=== PATIENT | male | born 1970 | race Two or more races ===

== ENCOUNTER 2025-05-03 20:45 | Emergency (ER) | payer MEDICAID, SELFPAY ==
[2025-05-03 20:52] VITALS: BP 143/103; PULSE 86; TEMP 36.9; O2SAT 96; BMI 50.2
--- NOTE | 2025-05-03 20:58 | US_ITS ---
[address] [address] Patient Name: KAILEE LOVE MRN: [id number] date: 1970 Sex: M Assigned Patient Location: ED.MAIN Current Patient Location: ED.MAIN Accession/Order Number: [id number] Exam Date: 05/03/2025 21:08 Report Date: 05/03/2025 22:13 At the request of: VICTORIA HILLS MD Procedure: US scrotum EXAMINATION TYPE: US scrotum grayscale, color Doppler, waveform duplex analysis was performed. DATE OF EXAM ORDERED: 05/03/2025 9:49 PM HISTORY: Testicular swelling COMPARISON: NONE TECHNIQUE: Realtime imaging of the scrotum was performed. [place] scale, color Doppler and spectral Doppler imaging of the testicles was performed. FINDINGS: Testicles: Both testicles demonstrate homogeneous echotexture without intratesticular filling defect. Right measurements: 4.6 x 2.2 x 2.8 cm Left measurements: 4.9 x 2.2 x 3.1 cm Epididymis: The bilateral epididymides demonstrate normal echogenicity without focal lesion. Right measurements: 1.1 cm Left measurements: 1.0 cm Hydrocele: None. There is scrotal wall thickening bilaterally measuring up to 2.3 cm in greatest thickness on the left where the skin is heterogeneous and hyperemic suspicious for cellulitis. Developing abscess is not excluded. Doppler ultrasound of the testicles: Arterial and venous waveforms are seen within both testicles. No sonographic evidence of testicular ischemia. US/US scrotum IMPRESSION: 1. The testicles are normal in size and echogenicity. No intratesticular lesions. 2. No sonographic evidence of testicular ischemia. 3. There is scrotal wall thickening bilaterally measuring up to 2.3 cm in greatest thickness on the left where the skin is heterogeneous and hyperemic suspicious for cellulitis. Developing abscess is not excluded. Impression dictated by: Pietro Rizo M.D. 05/03/2025 10:13 PM Dictation Location: [place] [address] Electronically authenticated by: [id number] Y Date: 05/03/2025 22:13
--- NOTE | 2025-05-03 21:03 | ED_ITS ---
HPI - Male Genitourinary General Chief complaint: Urogenital-Male Stated complaint: GENITALS ARE THE SIZE OF TRISTAN Time Seen by Provider: 05/03/25 20:47 Source: patient Mode of arrival: walk-in Limitations: no limitations History of Present Illness HPI Narrative: This 54-year-old male with a history of hypertension presents for evaluation of bilateral testicular swelling. The patient states that he had just gone to the bathroom and was sitting down when he felt something awkward between his legs. He then felt his testicles and found them to be swollen. He denies any injury to them. He does not have any swelling of his legs. He has no abdominal pain or back pain. He has not noticed any blood in his urine. He is diabetic and on Trulicity. He does not have any swelling in his perineum or groin area. Related Data Home Medications ?Medication ?Instructions ?Recorded ?Confirmed carvedilol 12.5 mg tablet mg 05/03/25 carvedilol 25 mg tablet mg 05/03/25 cholecalciferol (vitamin D3) 50 05/03/25 mcg (2,000 unit) tablet dulaglutide 1.5 mg/0.5 mL mg subcut 05/03/25 subcutaneous pen injector (Trulicity) furosemide 40 mg tablet mg 05/03/25 gabapentin 600 mg tablet mg 05/03/25 lisinopril 40 mg tablet mg 05/03/25 metformin 500 mg tablet,extended mg PO 05/03/25 release 24 hr pantoprazole 40 mg tablet,delayed mg PO 05/03/25 release simvastatin 20 mg tablet mg 05/03/25 trazodone 50 mg tablet mg 05/03/25 Allergies Allergy/AdvReac Type Severity Reaction Status Date / Time No Known Drug Allergies Allergy Verified 05/03/25 20:49 Review of Systems ROS Status of ROS 10 or more systems reviewed and unremark able except as noted in history and below PFSH PFSH Social History Little interest or pleasure in doing things: not at all Feeling down, depressed, or hopeless: not at all Exam Narrative Exam Narrative: Vital signs and Nursing Notes reviewed: Patient is afebrile with a normal pulse, blood pressure is elevated at 143/103, she is not hypoxic with pulse ox of 96% on room air General: Awake, alert, oriented, anxious overweight adult male, no acute distress, lying comfortably on the stretcher HEENT: Normocephalic atraumatic, mucous membranes are moist and pink, eyes are clear, normal conjunctiva, vision is grossly intact Neck: Supple, no meningeal signs, no anterior or posterior cervical lymphadenopathy Chest: Lungs are clear to auscultation with good air entry, there is no wheezing rhonchi or rales appreciated no accessory muscle use, patient is speaking in complete sentences-no chest wall tenderness to palpation CVS: Regular rate and rhythm S1-S2, no murmurs rubs or gallops, pulses are brisk and equal bilaterally ABD: Obese, soft, nondistended, nontender, no rebound guarding or rigidity, bowel sounds are normal, no pulsatile masses appreciated : There is swelling with mild tenderness to both testicles, testicles appear to have a normal lie, there is no cellulitis of the scrotum, there is no redness or swelling in the perineum concerning for necrotizing fasciitis Extremities: Moving all extremities, no lower extremity tenderness or swelling noted, negative Homans' sign, pulses are brisk and equal bilaterally Skin: Normal in appearance without rash,pallor, petechiae or purpura Neuro: No focal deficits Constitutional Vital Signs, click to edit/add: Last Vital Signs Temp 98.4 F 05/03/25 20:52 Pulse 85 05/03/25 22:42 Resp 20 05/03/25 22:42 BP 129/85 05/03/25 22:42 Pulse Ox 94 L 05/03/25 22:42 O2 Del Method Room Air 05/03/25 20:52 Course Vital Signs Vital signs: Vital Signs Temperature 98.4 F 05/03/25 20:52 Pulse Rate 86 05/03/25 20:52 Respiratory Rate 18 05/03/25 20:52 Blood Pressure 143/103 H 05/03/25 20:52 Pulse Oximetry 96 05/03/25 20:52 Oxygen Delivery Method Room Air 05/03/25 20:52 Temperature 98.4 F 05/03/25 20:52 Pulse Rate 85 05/03/25 22:42 Respiratory Rate 20 05/03/25 22:42 Blood Pressure 129/85 05/03/25 22:42 Pulse Oximetry 94 L 05/03/25 22:42 Oxygen Delivery Method Room Air 05/03/25 20:52 MDM - Male Genitourinary MDM Narrative Medical decision making narrative: This 54-year-old male who is diabetic and morbidly obese presents for evaluation of right lateral testicular swelling/scrotal swelling. Symptoms started today. The patient states he went to the bathroom then zipped up his pants and went and sat down and felt something abnormal. He then noticed that he had swelling of his testicles. He is not having any urinary symptoms. He does have moderately swollen testicles with a normal lie. Circumcised penis is normal in appearance. There is no inguinal lymphadenopathy. There was no sign of any infection, cellulitis or other notable abnormality concerning for necrotizing fasciitis in the posterior scrotal area or perineum. Ultrasound of the scrotum was ordered that shows thickening of the skin of the scrotum and otherwise normal appearing testicles. According to radiology this looks like possible cellulitis versus abscess. An IV was then placed and routine labs were ordered. He was given IV Unasyn. He declined the need for anything for pain. Urine is negative for infection or blood. He has a normal white count and hemoglobin. Electrolytes are normal with a normal glucose of 97. CRP and sed rate are normal. Lactic acid is also normal. He will be discharged home with recommendation for scrotal elevation and a prescription for ibuprofen and Augmentin. He was encouraged to follow-up closely with his family physician and return to the emergency department for any swelling redness, breakdown etc. in his perineal area. Patient and are in agreement with this plan. Lab Data Attestation: I reviewed the patient's lab results. Labs: Lab Results 05/03/25 05/03/25 Range/Units 22:05 22:30 WBC 9.9 (4.0-11.0) 10^3/uL RBC 4.26 L (4.70-6.10) 10^6/uL Hgb 14.0 (14.0-18.0) g/dL Hct 38.6 L (42.0-54.0) % MCV 90.6 (80.0-94.0) fL MCH 32.9 (25.9-34.0) pg MCHC 36.3 H (29.9-35.2) g/dL RDW 11.2 (11.0-15.0) % Plt Count 218 (150-450) 10^3/uL MPV 9.6 (9.5-13.5) fL Neut % (Auto) 65.4 (43.0-75.0) % Lymph % (Auto) 22.9 (20.5-60.0) % [place] % (Auto) 9.1 (1.7-12.0) % Eos % (Auto) 1.7 (0.9-7.0) % Baso % (Auto) 0.5 (0.2-2.0) % Neut # (Auto) 6.5 (1.4-6.5) 10^3/uL Lymph # (Auto) 2.3 (1.2-3.8) 10^3/uL [place] # (Auto) 0.9 H (0.3-0.8) 10^3/uL Eos # (Auto) 0.2 (0.0-0.7) 10^3/uL Baso # (Auto) 0.1 (0.0-0.1) 10^3/uL Abs Immat Gran (auto) 0.04 H (0.00-0.03) 10^3/uL Imm/Tot Granulo (auto) 0.4 (0.0-0.5) % ESR 18 (<=20) mm/hr Sodium 131 L (136-145) mmol/L Potassium 4.1 (3.5-5.1) mmol/L Chloride 93 L (98-107) mmol/L Carbon Dioxide 26.8 (21.0-32.0) mmol/L Anion Gap 15.3 BUN 13.0 (7.0-18.0) mg/dL Creatinine 1.19 (0.70-1.30) mg/dL Est GFR ( Amer) >60 (>=60 mL/min/1.73m^2) Est GFR (Non-Af Amer) >60 (>=60 mL/min/1.73m^2) BUN/Creatinine Ratio 10.9 Glucose 97 (74-106) mg/dL Lactate 1.2 (0.4-2.0) mmol/L Calcium 9.2 (8.5-10.1) mg/dL Total Bilirubin 0.7 (0.2-1.0) mg/dL AST 24 (15-37) U/L ALT 56 (16-63) U/L Alkaline Phosphatase 47 (46-116) U/L C-Reactive Protein <0.50 (<=0.50) mg/dL Total Protein 7.7 (6.4-8.2) g/dL Albumin 4.3 (3.4-5.0) g/dL Globulin 3.4 g/dL Albumin/Globulin Ratio 1.3 Urine Color Lt. yellow (YELLOW) Urine Clarity Clear (CLEAR) Urine pH 6.0 (5.0-9.0) Ur Specific [place] 1.010 (1.005-1.025) Urine Protein Negative (NEG/TRACE) mg/dL Urine Glucose (UA) Negative (NEGATIVE) mg/dL Urine Ketones Negative (NEGATIVE) mg/dL Urine Occult Blood Negative (NEGATIVE) Urine Nitrite Negative (NEGATIVE) Urine Bilirubin Negative (NEGATIVE) Urine Urobilinogen 0.2 (0.2-1.0) EU/dL Ur Leukocyte Esterase Negative (NEGATIVE) Urine RBC None seen (0-2) #/HPF Urine WBC None seen (NONE SEEN) #/HPF Ur Squamous Epith Cells Rare (NONE/RARE) #/LPF Urine Crystals None seen (None Seen) #/HPF Urine Bacteria None seen (NONE SEEN) #/HPF Urine Casts None seen (NONE SEEN) #/LPF Urine Mucus None seen (NONE SEEN) Ur Culture Indicated? No Imaging Data US - abdomen: Radiologist's impression: ITS Impressions Scrotum Ultrasound 05/03/25 20:58 IMPRESSION: 1. The testicles are normal in size and echogenicity. No intratesticular lesions. 2. No sonographic evidence of testicular ischemia. 3. There is scrotal wall thickening bilaterally measuring up to 2.3 cm in greatest thickness on the left where the skin is heterogeneous and hyperemic suspicious for cellulitis. Developing abscess is not excluded. Impression dictated by: Pietro Rizo M.D. 05/03/2025 10:13 PM Dictation Location[facility] Electronically authenticated by: [id number] Y Date: 05/03/2025 22:13 Discharge Plan Discharge Chief Complaint: Urogenital-Male Clinical Impression: Scrotal swelling, Cellulitis, scrotum Patient Disposition: Home, Self-Care Time of Disposition Decision: 23:14 Condition: Good Prescriptions / Home Meds: No Action furosemide 40 mg tablet carvedilol 25 mg tablet gabapentin 600 mg tablet carvedilol 12.5 mg tablet trazodone 50 mg tablet pantoprazole 40 mg tablet,delayed release (DR/EC) PO simvastatin 20 mg tablet lisinopril 40 mg tablet metformin 500 mg tablet extended release 24 hr PO cholecalciferol (vitamin D3) 50 mcg (2,000 unit) tablet Trulicity 1.5 mg/0.5 mL pen injector SUBCUT Print Language: Kiswahili Instructions: Cellulitis (ED), Scrotal Pain (ED) Additional Instructions: Elevate scrotum for comfort. Use antibiotics as directed until gone. Use warm compresses and ibuprofen for discomfort. Return to the emergency department for fever, worsening pain redness swelling to the scrotum or perineal area or any concerns. Referrals: Dave Kimbrough MD [Physician] - 1 week Dannie Junior MD [Primary Care Provider, Family Practice] - 1 week
--- OUTSIDE RECORDS SUMMARY | 2025-05-03 21:12 | XMS_ITS | Continuity of Care Document ---
Author Name [facility] Organization [facility] Care Team Providers Care Vest Tailor Name Role Phone [facility] Unavailable Unavailable Allergies, Adverse Reactions, Alerts Combined list of allergies from Department of Defense and Veterans Affairs facilities. It does not include entries that were removed or entered in error. Substance Category Reaction Severity Reaction type Status Date Reported Comments Source No Known Allergies Drug allergy (disorder) active 03/19/2018 [facility] Social History Combined list of available smoking, tobacco, and other social history from Department of Defense and Veterans Affairs facilities. Social History Type Response Date Comment [facility]ly [facility] e This section is an empty social history section. [facility]
--- OUTSIDE RECORDS SUMMARY | 2025-05-03 21:13 | XMS_ITS | Encounter Summary ---
Author Organization [facility] Address [address] [place] [address] Care Team Providers Care Gum Sprayer Name Role Phone Dannie Junior MD Primary Care Provider [phone] Encounter Details Date Type Department Care Team (Late st Contact Info) Description 01/25/2025 Results Follow-Up [facility] [address] [place] [address] Dannie Junior MD [address] [place] [address] Hemoglobin A1c, Hepatitis C antibody Social History Tobacco Use Types Packs/Day Years Used Date Smoking Tobacco: Never Smokeless Tobacco: Never Social Connection and Isolat ion Panel [NHANES] Answer Date Recorded In a typical week, how many times do you talk on the phone with family, friends, or neighbors? More than three times a week 06/02/2024 How often do you get togethe r with friends or relatives? More than three times a week 06/02/2024 How often do you attend chur ch or anabaptism services? 1 to 4 times per year 06/02/2024 Do you belong to any clubs o r organizations such as mosque groups, unions, fraternal or athletic groups, or school groups? No 06/02/2024 How often do you attend meet ings of the clubs or organizations you belong to? More than 4 times per year 06/02/2024 Are you , , di vorced, , never , or living with a partner? Never 06/02/2024 AUDIT-C Answer Date Recorded Q1: How often do you have a drink containing alcohol? 4 or more times a week 06/02/2024 Q2: How many drinks containi ng alcohol do you have on a typical day when you are drinking? 5 or 6 Frequency of Binge Drinking Not on file 05/10 Overall Financial Resource Strain (CARDIA) Answe r Date Recorded How hard is it for you to pa y for the very basics like food, housing, medical care, and heating? Not hard at all 06/02/2024 [facility] Occupat ional Health - Occupational Stress Questionnaire Answer Date Recorded Do you feel stress - tense, restless, nervous, or anxious, or unable to sleep at night because your mind is troubled all the time - these days? To some extent 06/02/2024 Exercise Vital Sign Answer Date Recorde d On average, how many days pe r week do you engage in moderate to strenuous exercise (like a brisk walk)? 1 day 06/02/2024 On average, how many minutes do you engage in exercise at this level? 10 min 06/02/2024 Hunger Vital Sign Answer Date Recorded Within the past 12 months, y ou worried that your food would run out before you got the money to buy more. Never true 06/02/20 24 Within the past 12 months, t he food you bought just didn't last and you didn't have money to get more. Never true 06/02/2024 PRAPARE - Transportation Answer Date Re corded In the past 12 months, has l ack of transportation kept you from medical appointments or from getting medications? No 05/10 In the past 12 months, has l ack of transportation kept you from meetings, work, or from getting things needed for daily living? No 06/02/2024 Housing Stability Vital Sign Answer Polo e Recorded In the last 12 months, was t here a time when you were not able to pay the mortgage or rent on time? No 06/02/2024 Number of Times Moved in the Last Year Not on fi le 06/02/2024 At any time in the past 12 m [facility], were you homeless or living in a alf (including now)? No 06/02/2024 Sex and Gender Information Value Date Recorded Sex Assigned at Male 06/02/2024 9:13 AM EDT Legal Sex Male 7:14 PM EDT Gender Identity Male 06/02/2024 9:13 AM EDT Sexual Orientation Not on file documented as of this encounter Plan of Treatment Upcoming Encounters Date Type Department Care Team (Late st Contact Info) Description 05/30/2025 1:15 PM EDT [facility] [address] [place] [address] Dannie Junior MD [address] [place] [address] documented as of this encounter Visit Diagnoses Not on filedocumented in this encounter Care Teams Gum Sprayer Relationship Specialty Start Date End Date Dannie Junior MD [address] [place] [address] PCP - General Family Medicine 08/19/24 documented as of this encounter
--- OUTSIDE RECORDS SUMMARY | 2025-05-03 21:13 | XMS_ITS | Encounter Summary ---
Author Organization [facility] Address [address] [place] [address] Care Team Providers Care Second Shift Supervisor Name Role Phone Dannie Junior MD Primary Care Provider [phone] Encounter Details Date Type Department Care Team (Late st Contact Info) Description 09/21/2024 Abstract [facility] [address] [place] [address] Dannie Junior MD [address] [place] [id number] Social History Tobacco Use Types Packs/Day Years [...] often do you attend chur ch or sikh services? 1 to 4 times per year 06/02/2024 Do you belong to any clubs o r organizations such as uatsdin groups, unions, fraternal or athletic groups, or [...] and heating? Not hard at all 06/02/2024 [facility] Occupat ional Health - Occupational Stress [...] any time in the past 12 m [facility], were you homeless or living in a half-way (including now)? No 06/02/2024 Sex and Gender [...] 05/30/2025 1:15 PM EDT Office Visit [facility] [address] [place] [address] Dannie Junior MD [address] [place] [address] documented as of this encounter Visit Diagnoses Not on filedocumented in this encounter Care Teams Second Shift Supervisor Relationship Specialty Start Date End Date Dannie Junior MD [address] [place] [id number] PCP - General Family Medicine 08/19/24 documented as of this encounter
--- OUTSIDE RECORDS SUMMARY | 2025-05-03 21:13 | XMS_ITS | Clinical Summary ---
Author Organization [facility] Address [address] [place] [address] Care Team Providers Care Director [employer] Name Role Phone Dannie Juinor MD Primary Care Provider [phone] Allergies No known active allergies Medications OneTouch Ultra test strip 1 each by Other route in the morning. 08/23/20 23 Active Lancets 30G miscIndications:Ty pe 2 diabetes mellitus with hyperglycemia, without long-term current use of insulin (HCC) 1 each Daily 50 each 11 05/27/20 24 Active gabapentin (Neurontin) 600 MG tabletIndications: Type 2 diabetes mellitus with polyneuropathy (HCC) Take 1 tablet (600 mg) by mouth at bedtime 30 tablet 5 11/18/19 25 Active traZODone (Desyrel) 50 MG tabletIndications: Primary insomnia TAKE 1 TABLET(50 MG) BY MOUTH AT BEDTIME 30 tablet 5 11/26/19 25 Active furosemide (Lasix) 40 MG tabletIndications: Edema of both lower legs TAKE 1 TABLET(40 MG) BY MOUTH DAILY NEEDED FOR SWELLING 30 tablet 5 11/26/19 25 Active lisinopril 40 MG tabletIndications: Benign essential hypertension TAKE 1 TABLET BY MOUTH ONCE DAILY 90 tablet 3 12/14/19 25 Active carvedilol (Coreg) 25 MG tabletIndications: Benign essential hypertension TAKE 1 TABLET BY MOUTH IN THE MORNING AND 1 TABLET BEFORE BEDTIME. 30 tablet 6 01/05/20 25 Active celecoxib (CeleBREX) 200 MG capsuleIndications :Primary osteoarthritis of right knee TAKE 1 CAPSULE BY MOUTH TWICE DAILY IF NEEDED 60 capsule 5 01/20/20 25 Active Trulicity 3 MG/0.5ML solution auto-injectorIndic ations:Type 2 diabetes mellitus with hyperglycemia, without long-term current use of insulin (HCC),Primary osteoarthritis of right knee ADMINISTER 3 MG UNDER THE SKIN 1 TIME EVERY WEEK 2 mL 03/14/20 25 Active metFORMIN XR (Glucophage-XR) 500 MG 24 hr tabletIndications: Type 2 diabetes mellitus with hyperglycemia, without long-term current use of insulin (HCC) TAKE 1 TABLET(500 MG) BY MOUTH DAILY 30 tablet 03/21/20 25 Active simvastatin (Zocor) 20 MG tabletIndications: Dyslipidemia TAKE 1 TABLET(20 MG) BY MOUTH AT BEDTIME 30 tablet 03/21/20 25 Active cholecalciferol (Vitamin D-3) 50 MCG (1999 UT) tabletIndications: Vitamin D deficiency TAKE 1 TABLET BY MOUTH DAILY. 90 tablet 3 03/21/20 25 Active pantoprazole (ProtoNix) 40 MG EC tabletIndications: Chronic superficial gastritis without bleeding TAKE 1 TABLET BY MOUTH IN THE MORNING AND 1 TABLET BEFORE BEDTIME 60 tablet 03/28/20 25 Active oxyCODONE-acetamin ophen (Percocet) 10-325 MG tabletIndications: Primary osteoarthritis of right knee Take 1 tablet by mouth 4 (four) times a day as needed for severe pain 120 tablet 04/07/20 25 025 Active oxyCODONE-acetamin ophen (Percocet) 10-325 MG tabletIndications: Primary osteoarthritis of right knee Take 1 tablet by mouth 4 (four) times a day as needed for severe pain 120 tablet 03/09/20 25 025 Discontin ued(Reord er) Active Problems Problem Noted Date Diagnosed Date Chronic bilateral low back pain with bilateral s ciatica 02/24/2025 Assessment & Plan (02/24/2025 1:59 PM EDT): Numbness in legs likely related to degenerative changes in back. Discussed options including imaging, PT and pain management and wants to monitor. Type 2 diabetes mellitus with polyneuropathy 08/2024 Assessment & Plan (02/24/2025 1:59 PM EDT): Symptoms stable and continue neurontin. Assessment & Plan (11/17/2024 1:44 PM EDT): Neuropathy unchanged and increase neurontin. Assessment & Plan (08/19/2024 2:59 PM EST): Developed neuropathy and start neurontin. Screening PSA (prostate specific antigen) 2023 Encounter for long-term current use of medicatio n 06/07/2024 Primary insomnia 06/07/2024 Assessment & Plan (02/24/2025 1:59 PM EDT): Sleeping well with trazodone and continue. Assessment & Plan (11/17/2024 1:43 PM EDT): Sleeping well with trazodone and continue. Assessment & Plan (08/19/2024 2:58 PM EST): Sleeping well with trazodone and continue. Assessment & Plan (06/07/2024 3:19 PM EDT): Not sleeping well and start trazodone. Benign essential hypertension 09/24/2023 Assessment & Plan (02/24/2025 1:58 PM EDT): BP improved and monitor PRN. Discussed DASH diet. Assessment & Plan (11/17/2024 1:43 PM EDT): BP elevated and increase coreg. Monitor PRN. Discussed DASH diet. Assessment & Plan (08/19/2024 2:57 PM EST): BP elevated today but previously controlled and monitor PRN. Assessment & Plan (06/07/2024 3:18 PM EDT): BP controlled and monitor PRN. Assessment & Plan (10/06/2023 3:20 PM EST): BP controlled and monitor PRN. Chronic superficial gastritis without bleeding 0 09/24/2023 Assessment & Plan (02/24/2025 1:59 PM EDT): Symptoms controlled with protonix and continue. Assessment & Plan (11/17/2024 1:43 PM EDT): Symptoms controlled with protonix and continue. Assessment & Plan (06/07/2024 3:18 PM EDT): Symptoms controlled with protonix and continue. Assessment & Plan (10/06/2023 3:21 PM EST): Symptoms controlled with protonix and continue. Dyslipidemia 09/24/2023 Edema of both lower legs 09/24/2023 Assessment & Plan (02/24/2025 1:59 PM EDT): Edema stable and use lasix PRN. Elevate legs PRN. Assessment & Plan (11/17/2024 1:43 PM EDT): Edema stable and use lasix PRN. Elevate legs PRN. Assessment & Plan (08/19/2024 2:57 PM EST): Edema stable and use lasix PRN. Elevate legs PRN. Assessment & Plan (06/07/2024 3:18 PM EDT): Edema stable and use lasix PRN. Elevate legs PRN. Assessment & Plan (10/06/2023 3:22 PM EST): Edema stable and use lasix PRN. Elevate legs PRN. PHOENIX (generalized anxiety disorder) 09/24/2023 Assessment & Plan (10/06/2023 3:22 PM EST): Symptoms stable without medication and monitor. Adult hypothyroidism 09/24/2023 Class 3 severe obesity due t o excess calories with serious comorbidity and body mass index (BMI) of 50.0 to 59.9 in adult 09/24/2023 Assessment & Plan (11/17/2024 1:43 PM EDT): Weight down 6 pounds. Assessment & Plan (08/19/2024 2:58 PM EST): Weight up 8 pounds. Discussed proper diet and regular aerobic exercise. Recommend Weight Watchers and need to limit calories and smaller portions. Need to increase activity and regular aerobic exercise several days a week for 30 minutes at a time. Assessment & Plan (06/07/2024 3:19 PM EDT): Weight up 19 pounds. Discussed proper diet and regular aerobic exercise. Recommend Weight Watchers and need to limit calories and smaller portions. Need to increase activity and regular aerobic exercise several days a week for 30 minutes at a time. SMITA (obstructive sleep apnea) 09/24/2023 Primary osteoarthritis of right knee 09/24/2023 Assessment & Plan (02/24/2025 1:59 PM EDT): Pain stable and continue celebrex. Use percocet PRN. Discussed risks and benefits of opiate therapy. Warned medication is narcotic and risk of addiction. OARRS reviewed. Assessment & Plan (11/17/2024 1:43 PM EDT): Pain stable and continue celebrex. Use percocet PRN. Discussed risks and benefits of opiate therapy. Warned medication is narcotic and risk of addiction. OARRS reviewed. Assessment & Plan (08/19/2024 2:57 PM EST): Pain stable and continue celebrex. Use percocet PRN. Discussed risks and benefits of opiate therapy. Warned medication is narcotic and risk of addiction. OARRS reviewed. Assessment & Plan (06/07/2024 3:19 PM EDT): Pain stable and continue celebrex. Use percocet PRN. Discussed risks and benefits of opiate therapy. Warned medication is narcotic and risk of addiction. OARRS reviewed. Assessment & Plan (10/06/2023 3:22 PM EST): Pain stable and continue celebrex. Use percocet PRN. Discussed risks and benefits of opiate therapy. Warned medication is narcotic and risk of addiction. OARRS reviewed. Seasonal allergic rhinitis due to pollen 024 Assessment & Plan (10/06/2023 3:22 PM EST): Symptoms controlled with medication and continue. Vitamin D deficiency 09/24/2023 Type 2 diabetes mellitus with hyperglycemia 04/2024 Assessment & Plan (02/24/2025 1:59 PM EDT): Reports BS controlled and recent A1C 6.4. Stick to ADA diet and limit carbs. Assessment & Plan (11/17/2024 1:43 PM EDT): Reports BS controlled and due for A1C. Stick to ADA diet and limit carbs. Assessment & Plan (08/19/2024 2:57 PM EST): BS controlled and last A1C 6.6. Stick to ADA diet and limit carbs. Assessment & Plan (06/07/2024 3:19 PM EDT): BS controlled and due for A1C. Stick to ADA diet and limit carbs. Assessment & Plan (10/06/2023 3:22 PM EST): BS controlled and A1C 5.8. Stick to ADA diet and limit carbs. Encounters Date Type Department Care Team Description 04/07/2025 Refill [facility] [address] [place] [address] Dannie Junior MD Primary osteoarthritis of right knee 03/27/2025 Refill [facility] [address] [place] [phone] Dannie Junior MD Chronic superficial gastritis without bleeding 03/18/2025 Refill [facility] [address] [place] [address] Dannie Junior MD Type 2 diabetes mellitus with hyperglycemia, without long-term current use of insulin (HCC); Dyslipidemia ; Vitamin D deficiency 03/14/2025 Refill [facility] [address] [place] [address] Dannie Junior MD Type 2 diabetes mellitus with hyperglycemia, without long-term current use of insulin (HCC); Primary osteoarthritis of right knee 03/09/2025 Refill [facility] [address] [place] [address] Dannie Junior MD Primary osteoarthritis of right knee 02/24/2025 1:30 PM EDT Office Visit [facility] [address] [place] [address] Dannie Junior MD Type 2 diabetes mellitus with hyperglycemia, without long-term current use of insulin (HCC) (Primary Dx); Benign essential hypertension ; Type 2 diabetes mellitus with polyneuropathy (HCC); Chronic bilateral low back pain with bilateral sciatica; Primary osteoarthritis of right knee; Primary insomnia; Edema of both lower legs; Chronic superficial gastritis without bleeding 02/24/2025 Bamboo flowsheet [facility] [address] [place] [address] Dannie Junior MD 02/10/2025 Refill [facility] [address] [place] [address] Dannie Junior MD Primary osteoarthritis of right knee from Last 3 Months Social History Tobacco Use Types Packs/Day Years Used Date Smoking Tobacco: Never Smokeless Tobacco: Never Tobacco Cessation:Counseling Given: Not Answered Social Connection and Isolat ion Panel [NHANES] Answer Date Recorded In a typical week, how many times do you talk on the phone with family, friends, or neighbors? More than three times a week 06/02/2024 How often do you get togethe r with friends or relatives? More than three times a week 06/02/2024 How often do you attend chur ch or uatsdin services? 1 to 4 times per year 06/02/2024 Do you belong to any clubs o r organizations such as latter-day groups, unions, fraternal or athletic groups, or [...] and heating? Not hard at all 06/02/2024 [facility] [place] [facility] Occupat ional Health - Occupational Stress [...] any time in the past 12 m [facility], were you homeless or living in a penitentiary (including now)? No 06/02/2024 Sex and Gender Information Value Date Recorded Sex Assigned at Male 06/02/2024 9:13 AM EDT Legal Sex Male 7:14 PM EDT Gender Identity Male 06/02/2024 9:13 AM EDT Sexual Orientation Not on file Last Filed Vital Signs Vital Sign Reading Time Taken Comments Blood Pressure 152/78 02/24/2025 1:40 PM EDT Pulse 88 02/24/2025 1:40 PM EDT Temperature 36.6 C (97.8 F) 02/24/2025 1:40 PM EDT Respiratory Rate 20 02/24/2025 1:40 PM EDT Oxygen Saturation 89% 02/24/2025 1:40 PM EDT Inhaled Oxygen Concentration - - Weight 162 kg (358 lb) 02/24/2025 1:40 PM EDT Height 177.8 cm (5' 10 ) 02/24/2025 1:40 PM EDT Body Mass Index 51.37 02/24/2025 1:40 PM EDT Plan of Treatment Upcoming Encounters Date Type Department Care Team (Late st Contact Info) Description 05/30/2025 1:15 PM EDT Office Visit [facility] [address] [place] [address] Dannie Junior MD [address] [place] [address] Health Maintenance Due Date Last Done Comments CT Colonography 1971 Colonoscopy 1971 FIT 1971 FOBT 1971 Sigmoidoscopy 1971 Diabetes: Retinopathy Screening 1981 Influenza Vaccine (#1) 2025 Diabetes: Urine Protein Screening 06/10/2025 06/10/2024, 06/10/2024, 06/10/2024, Additional history exists Diabetes: Hemoglobin A1C 07/25/2025 025, 01/22/2025, 06/10/2024, Additional history exists Colorectal Cancer Screening 06/21/2027 FIT-DNA 06/21/2027 06/21/2024 Procedures Procedure Name Priority Date/Time Associated Diagnosis Comments HEPATITIS C ANTIBODY Routine 02/01/2025 3:15 PM EDT HEMOGLOBIN A1C Routine 01/22/2025 11:12 AM EDT LAB COLOGUARD COLON CANCER SCREEN Routine 06/21/2024 9:00 AM EDT Colon cancer screening MICROALBUMIN / CREATININE URINE RATIO Routine 06/10/2024 12:10 PM EDT from Last 3 Months or Most Recently Relevant to Health Maintenance Results * Hepatitis C antibody (02/01/2025 3:15 PM EDT) ANTI HCV W/PCR REFLEX Non-Reacti ve Non-Reacti ve [facility] Comment: If recent infection suspected, recommend repeat testing (>2 months). Nxokwy-un-bbbbsr ratio is <1.0. PERFORMED AT [facility] [address], [place] [address] 02/01/2025 3:1 5 PM EDT 02/01/2025 10:05 PM EDT us Dannie Junior MD LAB BLOOD ORDERABLES Final Resul t [facility] * (ABNORMAL) Hemoglobin A1c (01/22/2025 11:12 AM EDT) HEMOGLOBIN A1C 6.4(H) 4.4 - 5.6 % [facility] Comment: ADA Guidelines Result HgbA1c Normal : less than 5.7 % Prediabetes : 5.7 % to 6.4 % Diabetes : > 6.4 % Use with caution in patients with abnormal hemoglobin variants as the half-life of red blood cells and in vivo glycation rates are affected. AVERAGE GLUCOSE 137 mg/dL [facility] Comment: PERFORMED AT [facility] [address],[place] [address] 01/22/2025 11:1 2 AM EDT 01/22/2025 3:38 PM EDT Dannie Junior MD LAB BLOOD ORDERABLES Final Resul t [facility] * Cologuard?? colon cancer screening (06/21/2024 9:00 AM EDT) NONINV COLON CA DNA+OCC BLD SCRN STL-IMP Negative Negative 06/28/2024 10:00 AM EDT [facility] (CLIA #:[id number]) Comment: NEGATIVE TEST RESULT. A negative Cologuard result indicates a low likelihood that a colorectal cancer (CRC) or advanced adenoma (adenomatous polyps with more advanced pre-malignant features) is present. The chance that a person with a negative Cologuard test has a colorectal cancer is less than 1 in 1500 (negative predictive value >99.9%) or has an advanced adenoma is less than 5.3% (negative predictive value 94.7%). These data are based on a prospective cross-sectional study of 10,000 individuals at average risk for colorectal cancer who were screened with both Cologuard and colonoscopy. (Jessica Perry et al, N Engl J Med 2014;370(14):9615-2446) The normal value (reference range) for this assay is negative. COLOGUARD RE-SCREENING RECOMMENDATION: Periodic colorectal cancer screening is an important part of preventive healthcare for asymptomatic individuals at average risk for colorectal cancer. Following a negative Cologuard result, the [place] [employer] Society and U.S. Multi-Society Task Force screening guidelines recommend a Cologuard re-screening interval of 3 years. References: [place] [employer] Guideline for Colorectal Cancer Screening: https://www.cancer.org/cancer/bsowd-jputpn-mlnxqh/mmhlulecc-kumtfpeaj-ypysnhv/ac s-rec ommendations.html.; Fabien JAIMES, Julio Cesar CR, Gem FRY, Colorectal Cancer Screening: Recommendations for Physicians and Patients from the U.S. Multi-Society Task Force on Colorectal Cancer Screening , Am J Gastroenterology 2017; 112:1868-1175. TEST DESCRIPTION: Composite algorithmic analysis of stool DNA-biomarkers with hemoglobin immunoassay. Quantitative values of individual biomarkers are not reportable and are not associated with individual biomarker result reference ranges. Cologuard is intended for colorectal cancer screening of adults of either sex, 45 years or older, who are at average-risk for colorectal cancer (CRC). Cologuard has been approved for use by the U.S. FDA. The performance of Cologuard was established in a cross sectional study of average-risk adults aged 50-84. Cologuard performance in patients ages 45 to 49 years was estimated by sub-group analysis of near-age groups. Colonoscopies performed for a positive result may find as the most clinically significant lesion: colorectal cancer [4.0%], advanced adenoma (including sessile serrated polyps greater than or equal to 1cm diameter) [20%] or non- advanced adenoma [31%]; or no colorectal neoplasia [45%]. These estimates are derived from a prospective cross-sectional screening study of 10,000 individuals at average risk for colorectal cancer who were screened with both Cologuard and colonoscopy. (Jessica Leblanc al, N Engl J Med 2014;370(14):6061-5950.) Cologuard may produce a false negative or false positive result (no colorectal cancer or precancerous polyp present at colonoscopy follow up). A negative Cologuard test result does not guarantee the absence of CRC or advanced adenoma (pre-cancer). The current Cologuard screening interval is every 3 years. ([place] [employer] and U.S. Multi-Society Task Force). Cologuard performance data in a 10,000 patient pivotal study using colonoscopy as the reference method can be accessed at the following location: www.[employer]/results. Additional description of the Cologuard test process, warnings and precautions can be found at www.[employer].MobileWebsites. Stool specimen (specimen) 06/21/2024 9:00 AM EDT 06/22/2024 1:02 PM EDT Dannie Junior MD LAB MOLECULAR DIAGNOSTICS [facility] Final Result [facility] (CLIA #:[id number]) [place] [address], [place] [phone] * Microalbumin / creatinine urine ratio (06/10/2024 12:10 PM EDT) MICROALBUMIN, URINE 0.8 0.0 - 1.9 mg/dL [facility] URINE CREAT 84.97 mg/dL [facility] ALB/CREAT RATIO 9.4 0.0 - 30.0 mg/g creat [facility] Comment:PERFORMED AT [facility] [address],[place] [address] 06/10/2024 12:1 0 PM EDT 06/10/2024 12:11 PM EDT Dannie Junior MD LAB URINE ORDERABLES Final Resul t [facility] from Last 3 Months or Most Recently Relevant to Health Maintenance Insurance MEDICAID [place] Care Teams Director Museum [employer] Relationship Specialty Start Date End Date Dannie Junior MD [address] [place] [address] PCP - General Family Medicine 08/19/24
--- OUTSIDE RECORDS SUMMARY | 2025-05-03 21:13 | XMS_ITS | Clinical Summary ---
Author Organization [employer] tem Address [id number] [address] [place] [address] Care Team Providers Care Paleologist Name Role Phone Dannie Junior MD Primary Care Provider [phone] Allergies No known active allergies Medications lisinopril (PRINIVIL,ZESTRI L) 10 mg tablet Take 40 mg by mouth daily. Active simvastatin (ZOCOR) 40 mg tablet Take 40 mg by mouth nightly. Active metFORMIN (GLUCOPHAGE) 1000 mg tablet Take 500 mg by mouth daily with breakfast. Active citalopram (CeleXA) 40 mg tablet Take 40 mg by mouth daily. Active carvedilol (COREG) 12.5 mg tablet Take 6.25 mg by mouth daily. Active Encounters Date Type Department Care Team Description 02/01/2025 Travel from Last 3 Months Social History Tobacco Use Types Packs/Day Years Used Date Smoking Tobacco: Never Smokeless Tobacco: Never Alcohol Use Standard Drinks/Week Comments Yes 0 (1 standard drink = 0.6 oz pur e alcohol) BEER EVERY OTHER DAY Childcare Answer Date Recorded Childcare Unknown 02/17/2019 Employment Answer Date Recorded Employment Unknown 02/17/2019 Purpose - Life Answer Date Recorded Purpose and direction in life Unknown Sex and Gender Information Value Date Recorded Sex Assigned at Not on file Legal Sex Male 11:32 AM EDT Gender Identity Not on file Sexual Orientation Not on file Last Filed Vital Signs Vital Sign Reading Time Taken Comments Blood Pressure 142/64 01/30/2021 10:30 PM EDT Pulse 78 01/30/2021 10:40 PM EDT Temperature 36.7 C (98 F) 01/30/2021 6:53 PM EDT Respiratory Rate 15 01/30/2021 10:40 PM EDT Oxygen Saturation 96% 01/30/2021 10:40 PM EDT Inhaled Oxygen Concentration - - Weight 147.4 kg (325 lb) 01/30/2021 6:53 PM EDT Height 177.8 cm (5' 10 ) 01/30/2021 6:53 PM EDT Body Mass Index 46.63 01/30/2021 6:53 PM EDT Plan of Treatment Health Maintenance Due Date Last Done Comments Diabetic Ophthalmology Exam 1971 Depression Screening 1983 Tobacco Screening 1983 Adult BMI Screening 1989 Diabetic Foot Exam 1989 DTaP,Tdap and Td Vaccines (1 - Tdap) 1990 Zoster (Shingles) Vaccine (1 of 2) 2021 Influenza Vaccine 05/09/2025 Statin Use: Diabetic 03/21/2026 03/21/2025 Medical Devices Not on file Procedures Procedure Name Priority Date/Time Associated Diagnosis Comments HEPATITIS C(HCV) ANTIBODY W/REFLEX TO PCR Routine 02/01/2025 3:15 PM EDT Contact with and (suspected) exposure to viral hepatitis from Last 3 Months Results * Hepatitis C(HCV) Ab w/ Reflex to PCR (02/01/2025 3:15 PM EDT) ANTI HCV W/PCR REFLX Non-Reacti ve Non-Reacti ve 02/01/2025 11:40 PM EDT [facility] Comment: If recent infection suspected, recommend repeat testing (>2 months). Mjsrgq-df-[id number] ratio is <1.0. Blood Venous blood / Unknown Venipuncture / Unknown 02/01/2025 3:15 PM EDT 02/01/2025 3:15 PM EDT us Dannie Junior MD LAB BLOOD ORDERABLES Final Resul t [facility] [address] [place] [address], [place] [phone] from Last 3 Months Insurance [facility] MEDICAID Care Teams Paleologist Relationship Specialty Start Date End Date Dannie Junior MD PCP - General 03/03/17
--- NOTE | 2025-05-03 21:58 | PC.NURSE ---
report given to Kathy GREENE, all questions answered.
[2025-05-03 22:10] LABS: Glucose Urine UA NEGATIVE (NEGATIVE)
[2025-05-03 22:19] LABS: Cast Seen? NONE SEEN #/LPF (NONE SEEN); Crystals Seen? None Seen #/HPF (None Seen); Urine Culture Indicated NO
[2025-05-03] MEDS: AMPICILLIN SODIUM/SULBACTAM NA 3 GM in 0.9 % SODIUM CHLORIDE 100 ML IV (22:39)
[2025-05-03 22:40] LABS: Hematocrit 38.6 % (42.0-54.0); Hemoglobin 14.0 g/dL (14.0-18.0); Immature Granulocytes Abs Auto 0.04 10^3/uL (0.00-0.03); Immature Granulocytes Pct Auto 0.4 % (0.0-0.5); Lymphocytes Absolute Auto 2.3 10^3/uL (1.2-3.8); Mean Corpuscular HGB Conc 36.3 g/dL (29.9-35.2); Mean Corpuscular Hemoglobin 32.9 pg (25.9-34.0); Mean Corpuscular Volume 90.6 fL (80.0-94.0); Platelet Count 218 10^3/uL (150-450); Red Blood Count 4.26 10^6/uL (4.70-6.10); White Blood Count 9.9 10^3/uL (4.0-11.0)
[2025-05-03 22:42] VITALS: BP 129/85; PULSE 85; O2SAT 94
[2025-05-03 22:55] LABS: Alanine Aminotransferase 56 U/L (16-63); Albumin Globulin Ratio 1.3; Albumin Level 4.3 g/dL (3.4-5.0); Alkaline Phosphatase 47 U/L (46-116); Anion Gap 15.3; Aspartate Amino Transferase 24 U/L (15-37); Blood Urea Nitrogen 13.0 mg/dL (7.0-18.0); Calcium 9.2 mg/dL (8.5-10.1); Carbon Dioxide 26.8 mmol/L (21.0-32.0); Chloride 93 mmol/L (98-107); Estimated GFR (African America >60 (>=60 mL/min/1.73m^2); Estimated GFR (Non-African Ame >60 (>=60 mL/min/1.73m^2); Globulin 3.4 g/dL; Glucose 97 mg/dL (74-106); Potassium 4.1 mmol/L (3.5-5.1); Sodium 131 mmol/L (136-145); Total Protein 7.7 g/dL (6.4-8.2)
[2025-05-03 22:58] LABS: Lactate/Lactic Acid 1.2 mmol/L (0.4-2.0)
== END 2025-05-03 23:41 | disposition home or self-care (01) ==
PROVIDERS: Emergency Provider Emergency Medicine; PCP Family Medicine
DX: N49.2 Inflammatory disorders of scrotum (principal); N50.89 Other specified disorders of the male genital organs; I10 Essential (primary) hypertension; E11.9 Type 2 diabetes mellitus without complications; Z79.85 Long-term (current) use of injectable non-insulin antidiabetic drugs; Z79.84 Long term (current) use of oral hypoglycemic drugs; E66.01 Morbid (severe) obesity due to excess calories; Z68.43 Body mass index [BMI] 50.0-59.9, adult
CPT/HCPCS: 36415; 76870; 80053; 81001; 83605; 85025; 85652; 86140; 96365; 99285; J0295

== ENCOUNTER 2025-08-02 13:00 | Outpatient (OUT) | payer OTHER, SELFPAY ==
--- OUTSIDE RECORDS SUMMARY | 2025-08-02 13:07 | XMS_ITS | Encounter Summary ---
Author Organization [facility] [facility] tem Address [id number] [place] [address] Care Team Providers Care Comic Book Writer Name Role Phone Dannie Junior MD Primary Care Provider [phone] Encounter Details DateTypeDepartmentCare Team (Latest Contact Info)Rmcitptwkzr01/21/2025Travel Social History Tobacco UseTypesPacks/DayYears UsedDateSmoking Tobacco: NeverSmokeless Tobacco: NeverAlcohol UseStandard Drinks/WeekCommentsYes0 (1 standard drink = 0.6 oz pure alcohol)BEER EVERY OTHER DAYChildcareAnswerDate RecordedChildcareUnknown 02/17/2019EmploymentAnswerDate TuarplbdOtoiafbbbyQavmquu72/12/2019Hunger ScreeningAnswerDate RecordedWithin the past 12 months we worried whether our food would run out before we got money to buy more.Never True05/25/2025Within the past 12 months the food we bought just didn't last and we didn't have money to get more.Never True05/25/2025Purpose - LifeAnswerDate RecordedPurpose and direction in yhcwLrbvfrb98/11/2021ex and Gender InformationValueDate Recorded Sex Assigned at BirthNot on fileLegal OnqEixh6104/13/2015 11:32 AM EDTGender IdentityNot on fileSexual OrientationNot on filedocumented as of this encounter Plan of Treatment Not on file documented as of this encounter Visit Diagnoses Not on filedocumented in this encounter Care Teams Team MemberRelationshipSpecialtyStart DateEnd Date Dannie Junior MD [facility] - General03/03/17documented as of this encounter
--- OUTSIDE RECORDS SUMMARY | 2025-08-02 13:07 | XMS_ITS | Clinical Summary ---
Author Organization [facility] tem Address [id number] [address] [place] [address] Care Team Providers Care Mathematics Faculty Member Name Role Phone Dannie Junior MD Primary Care Provider [phone] Allergies No known active allergies Medications MedicationSigDispense QuantityRefillsLast FilledStart DateEnd DateStatus lisinopril (PRINIVIL,ZESTRIL) 10 mg tablet Take 40 mg by mouth daily. Active simvastatin (ZOCOR) 40 mg tablet Take 40 mg by mouth nightly.Active metFORMIN (GLUCOPHAGE) 1000 mg tablet Take 500 mg by mouth daily with breakfast. Active citalopram (CeleXA) 40 mg tablet Take 40 mg by mouth daily.Active carvedilol (COREG) 12.5 mg tablet Take 6.25 mg by mouth daily. Active ondansetron ODT (ZOFRAN ODT) 4 mg disintegrating tablet Dissolve 1 tablet (4 mg total) on tongue every 8 (eight) hours as needed for nausea for up to 10 doses. 10 tablet 5Active Encounters DateTypeDepartmentCare PyfoGonwtnxblrx69/21/2459Wdognt07/17/2025 12:19 AM EDT - 05/25/2025 2:28 AM EDTEmergency [facility] [address] [place] [id number] Wyatt Ryder DO Accidental fall, initial encounter (Primary Dx); Acute head injury, initial encounter; Laceration of head without foreign body, unspecified part of head, initial encounter; Alcoholic intoxication without complication; Alcohol abuse; Nausea and vomiting, unspecified vomiting type Discharge Disposition: Home05/25/2025Travelfrom Last 3 Months Social History Tobacco UseTypesPacks/DayYears UsedDateSmoking Tobacco: NeverSmokeless Tobacco: NeverAlcohol UseStandard Drinks/WeekCommentsYes0 (1 standard drink = 0.6 oz pure alcohol)BEER EVERY OTHER DAYChildcareAnswerDate RecordedChildcareUnknown 02/17/2019EmploymentAnswerDate LigspwtaWctldjdmcoDdciics89/12/2019Hunger ScreeningAnswerDate RecordedWithin the past 12 months we worried whether our food would run out before we got money to buy more.Never True05/25/2025Within the past 12 months the food we bought just didn't last and we didn't have money to get more.Never True05/25/2025Purpose - LifeAnswerDate RecordedPurpose and direction in tmioZriodcw73/11/2021ex and Gender InformationValueDate Recorded Sex Assigned at BirthNot on fileLegal PbzIpnb9804/13/2015 11:32 AM EDTGender IdentityNot on fileSexual OrientationNot on file Last Filed Vital Signs Vital SignReadingTime TakenCommentsBlood Udkfjgps538/6709 2:28 AM EDT Kpyvw590905/25/2025 2:28 AM LNRSrkkmlwtpic40.3 ??C (97.4 ??F)05/25/2025 12:22 AM EDTRespiratory Qkxo496705/25/2025 2:28 AM EDTOxygen Bhzokdyleo25%05/25/2025 2:28 AM EDTInhaled Oxygen Concentration--Hdkmef733.5 kg (356 lb)05/25/2025 12:22 AM GQHOfnvxl076.8 cm (5' 10 )05/25/2025 12:22 AM EDTBody Mass Index51.0805/25/2025 12:22 AM EDT Plan of Treatment Health MaintenanceDue DateLast DoneCommentsDiabetic Ophthalmology Exam1971 Depression Gvkdcpagv81/05/1983Adult BMI Follow Up Plan1989Diabetic Foot Exam1989DTaP,Tdap and Td Vaccines (1 - Tdap)1990Zoster (Shingles) Vaccine (1 of 2)2021Influenza Mkbarrg0505/09/2025dult BMI Screening Tobacco Tpttzjacw81Statin Use: Diabetic Medical Devices Not on file Procedures Procedure NamePriorityDate/TimeAssociated DiagnosisCommentsMICROALBUMIN / CREATININE URINE RVTTNUwlcvhp08/21/2025 12:45 PM EST Other fpc (current) drug therapy Hyperlipidemia, unspecified Type 2 diabetes mellitus with hyperglycemia (CMS-HCC) Hypothyroidism, unspecified CBC WITH AUTO KQFFVUFBXFTWAmkhkfy49/21/2025 12:45 PM EST Other ocean transportation intermediary (current) drug therapy Hyperlipidemia, unspecified Type 2 diabetes mellitus with hyperglycemia (CMS-HCC) Hypothyroidism, unspecified COMPREHENSIVE METABOLIC ZNOXVPkrrkhz55/21/2025 12:45 PM EST Other ocean transportation intermediary (current) drug therapy Hyperlipidemia, unspecified Type 2 diabetes mellitus with hyperglycemia (CMS-HCC) Hypothyroidism, unspecified LIPID BOPAGGDJyawvwf80/21/2025 12:45 PM EST Other fpc (current) drug therapy Hyperlipidemia, unspecified Type 2 diabetes mellitus with hyperglycemia (CMS-HCC) Hypothyroidism, unspecified PROSTATIC SPECIFIC ANTIGEN VHJSSGPqisztx22/21/2025 12:45 PM EST Other ocean transportation intermediary (current) drug therapy Hyperlipidemia, unspecified Type 2 diabetes mellitus with hyperglycemia (CMS-HCC) Hypothyroidism, unspecified THYROID PROFILE INCLUDES TSH YS3Lerboog44/21/2025 12:45 PM EST Other fpc (current) drug therapy Hyperlipidemia, unspecified Type 2 diabetes mellitus with hyperglycemia (CMS-HCC) Hypothyroidism, unspecified HEMOGLOBIN K0QKycejmc36/21/2025 12:45 PM EST Other fpc (current) drug therapy Hyperlipidemia, unspecified Type 2 diabetes mellitus with hyperglycemia (CMS-HCC) Hypothyroidism, unspecified CT CERVICAL SPINE WO UBJJNDEO14/17/2025 1:[address] BRAIN WO ONMZURGD71/17/2025 1:20 AM EDT PM ED LACERATION QLORTDSehqbrq96/17/2025 12:30 AM EDT from Last 3 Months Results * Thyroid profile includes TSH FT4 (07/29/2025 12:45 PM EST)ComponentValueRef RangeTest MethodAnalysis TimePerformed AtPathologist SignatureFREE T41.000.61 - 1.60 ng/dL07/29/2025 6:30 PM [facility] LABORATORYTSH1.36 0.49 - 4.67 uIU/mL07/29/2025 6:30 PM [facility] Specimen (Source)Anatomical Location / LateralityCollection Method / Volume Collection TimeReceived TimeBloodVenous blood / UnknownVenipuncture / Unknown 07/29/2025 12:45 PM EST07/29/2025 12:45 PM EST Narrative Authorizing ProviderResult TypeResult StatusMarc Vernon GRULLON BLOOD ORDERABLES Final ResultPerforming OrganizationAddressCity/State/ZIP CodePhone Number [facility] [address] [place] [address], * (ABNORMAL) CBC auto differential (07/29/2025 12:45 PM EST)ComponentValueRef RangeTest MethodAnalysis TimePerformed AtPathologist SignatureWBC6.84 - 11 10^9/L109/28/2024 5:58 PM [facility] LABORATORYRBC Count4.05 (L)4.1 - 5.7 10^12/L109/28/2024 5:58 PM [facility] Ajgjaxufdu24.213 - 17 g/dL07/29/2025 5:58 PM [facility] KVXJVFUCSZYqljxffwjr45.2(L)39 - 50 %07/29/2025 5:58 PM [facility] PTJJDZLAQUPVK7540 - 100 fL07/29/2025 5:58 PM [facility] HAFLHWZNUDSSA76.627 - 34 pg07/29/2025 5:58 PM [facility] QQUVOYBZWFPBFU94.432 - 36 g/dL07/29/2025 5:58 PM [facility] QRBZHBJHIHNIZ22.111.5 - 15 %07/29/2025 5:58 PM [facility] LABORATORYPlatelet Jeidl687471 - 450 10^9/L109/28/2024 5:58 PM [facility]ORATORYMPV9.17 - 12 fL07/29/2025 5:58 PM [facility] LAB[facility]ORYNeutrophils %62.1%07/29/2025 5:58 PM [facility]ORYLymphocytes %27.0%07/29/2025 5:58 PM [facility]ORYMonocytes %8.5%07/29/2025 5:58 PM [facility]ORYEosinophils %1.7%07/29/2025 5:58 PM [facility]ORYBasophils %0.7%07/29/2025 5:58 PM [facility] LAB[facility]ATORYNeutrophils Absolute (A)4.21.5 - 6.6 10^9/L 07/29/2025 5:58 PM [facility]ATORYLymphocytes Absolute 1.81.0 - 3.5 10^9/L109/28/2024 5:58 PM [facility] Monocytes Absolute0.60.0 - 0.9 10^9/L109/28/2024 5:58 PM [facility]ORYEosinophils Absolute0.10.0 - 0.4 10^9/L109/28/2024 5:58 PM [facility] LABORATORYBasophils Absolute0.00.0 - 0.2 10^9/L 07/29/2025 5:58 PM [facility] LABORATORYDifferential Type AUTOMATED DHJCHLLTLPZY73/21/2025 5:58 PM [facility] LABORATORYSpecimen (Source)Anatomical Location / LateralityCollection Method / VolumeCollection TimeReceived TimeBloodVenous blood / UnknownVenipuncture / Phdqrxe8007/29/2025 12:45 PM EST07/29/2025 12:45 PM EST Narrative Authorizing ProviderResult TypeResult StatusDannie GRULLON BLOOD ORDERABLES Final ResultPerforming OrganizationAddressCity/State/ZIP CodePhone Number [facility] [address] [place] [address], * Microalbumin - Albumin: Creatinine Urine Ratio (07/29/2025 12:45 PM EST) ComponentValueRef RangeTest MethodAnalysis TimePerformed AtPathologist SignatureURINE CREATININE,RDM40.55mg/dL07/29/2025 6:12 PM [facility] LABORATORYMALB/CREAT RATIO07/29/2025 6:12 PM [facility] LABORATORYComment:Urine Microalbumin / Creatinine ratio not calculated due to non-numeric component.MICROALBUMIN, URINE<0.70.0 - 1.9 mg/dL07/29/2025 6:12 PM [facility] LABORATORYSpecimen (Source)Anatomical Location / LateralityCollection Method / VolumeCollection TimeReceived Time UrineUrine specimen collection, clean catch / UnknownCollection / Unknown 07/29/2025 12:45 PM EST07/29/2025 12:45 PM EST Narrative Authorizing ProviderResult TypeResult StatusDannie KINGSLEY ORDERABLESFinal ResultPerforming OrganizationAddressCity/State/ZIP CodePhone Number [facility] [address] [place] [address], * (ABNORMAL) Prostatic specific antigen screen (07/29/2025 12:45 PM EST) ComponentValueRef RangeTest MethodAnalysis TimePerformed AtPathologist SignaturePROSTATIC SPEC ANT5.30(H)0.00 - 4.00 ng/mL07/29/2025 6:36 PM EST [facility] LABORATORYComment: The method used for this test is [employer] DXI chemiluminescent immunoassay. Values obtained by different assay methods cannot be used interchangeably. Specimen (Source)Anatomical Location / LateralityCollection Method / Volume Collection TimeReceived TimeBloodVenous blood / UnknownVenipuncture / Unknown 07/29/2025 12:45 PM EST07/29/2025 12:45 PM EST Narrative Authorizing ProviderResult TypeResult StatusDannie GRULLON BLOOD ORDERABLES Final ResultPerforming OrganizationAddressCity/State/ZIP CodePhone Number [facility] [address] [place] [address], * (ABNORMAL) Hemoglobin A1c (07/29/2025 12:45 PM EST)ComponentValueRef RangeTest MethodAnalysis TimePerformed AtPathologist SignatureHEMOGLOBIN A1C5.7(H)4.4 - 5.6 %07/29/2025 6:29 PM [facility] LABORATORYComment: ?ADA Guidelines ?Result ?HgbA1c ? Normal : ? less than 5.7 % ? Prediabetes : ?5.7 % ??to 6.4 % Diabetes : > 6.4 % ?Use with caution in patients with abnormal hemoglobin variants as ??the half-life of red blood cells and in vivo glycation rates are ??affected. EST. AVERAGE TOBXHQG001fl/dL07/29/2025 6:29 PM [facility] LABORATORYSpecimen (Source)Anatomical Location / LateralityCollection Method / VolumeCollection TimeReceived TimeBloodVenous blood / UnknownVenipuncture / Xgpktho3407/29/2025 12:45 PM EST07/29/2025 12:45 PM EST Narrative Authorizing ProviderResult TypeResult StatusDannie GRULLON BLOOD ORDERABLES Final ResultPerforming OrganizationAddressCity/State/ZIP CodePhone Number [facility] [address] [place] [address], * Lipid profile (07/29/2025 12:45 PM EST)ComponentValueRef RangeTest Method Analysis TimePerformed AtPathologist UdlxvxvhjIDJXAYMNYJU680497 - 200 mg/dL 07/29/2025 6:20 PM [facility] TCKODHFNRMCAKTXMMBGEEL85007 - 150 mg/dL07/29/2025 6:20 PM [facility] LABORATORYHDL JYGSHGNYKHN76>39 mg/dL07/29/2025 6:20 PM [facility]ORATORYComment: HDL <40 mg/dL - High Risk HDL > or = 40mg/dL- Desirable HDL >60 mg/dL - Negative Risk LDL (CALC)94<130 mg/dL07/29/2025 6:20 PM [facility] Comment: LDL <100 mg/dL - Desirable LDL >160 mg/dL - High Risk CHOLESTEROL:HDL2.91.0 - 5.011/ 6:20 PM [facility] LABORATORYVERY LOW GOUXPWOSBRO692 - 30 mg/dL07/29/2025 6:20 PM [facility] LABORATORYSpecimen (Source)Anatomical Location / Laterality Collection Method / VolumeCollection TimeReceived TimeBloodVenous blood / UnknownVenipuncture / Ivwzpcb6607/29/2025 12:45 PM EST07/29/2025 12:45 PM EST Narrative Authorizing ProviderResult TypeResult StatusMarc Vernon GRULLON BLOOD ORDERABLES Final ResultPerforming OrganizationAddressCity/State/ZIP CodePhone Number [facility] [address] [place] [address], * (ABNORMAL) Comprehensive metabolic panel (07/29/2025 12:45 PM EST)Component ValueRef RangeTest MethodAnalysis TimePerformed AtPathologist SignatureSODIUM 177289 - 146 mmol/L109/28/2024 6:20 PM [facility] POTASSIUM4.63.5 - 5.0 mmol/L109/28/2024 6:20 PM [facility] SYJJDQNLCZHGJFSXSR22(L)98 - 109 mmol/L109/28/2024 6:20 PM [facility] LABORATORYCARBON UCQWXIK48(H)22 - 32 mmol/L109/28/2024 6:20 PM [facility] LABORATORYANION GAP85 - 15 mmol/L109/28/2024 6:20 PM [facility] LABORATORYBLOOD UREA TUFMPEGH155 - 23 mg/dL07/29/2025 6:20 PM [facility] LABORATORYCREATININE1.78(H)0.60 - 1.30 mg/dL07/29/2025 6:20 PM [facility] LABORATORYComment:METHOD TRACEABLE TO IDPA AUINDMBACZZMUCB636(H)65 - 99 mg/dL07/29/2025 6:20 PM [facility] LABORATORYCALCIUM9.68.5 - 10.5 mg/dL07/29/2025 6:20 PM [facility] LABORATORYTOTAL PROTEIN6.76.0 - 8.0 g/dL 07/29/2025 6:20 PM [facility] LABORATORYALBUMIN4.53.2 - 5.3 g/dL07/29/2025 6:20 PM [facility] LABORATORYALKALINE JWARLXAFIJL88(L)39 - 130 U/L109/28/2024 6:20 PM [facility] IWZIZVUDPLVLJ67<=41 U/L109/28/2024 6:20 PM [facility] YBIYVIFKPBIKD58<=40 U/L109/28/2024 6:20 PM [facility] LABORATORYBILIRUBIN,TOTAL0.60.3 - 1.2 mg/dL07/29/2025 6:20 PM [facility]ORYEGFR Non-Race Cnrcklrdu37(L)>=60 ml/min/1.73sq.m 07/29/2025 6:20 PM [facility] LABORATORYComment: Reported eGFR is based on the CKD-EPI 2020 equation that does not use a race coefficient. Specimen (Source)Anatomical Location / LateralityCollection Method / Volume Collection TimeReceived TimeBloodVenous blood / UnknownVenipuncture / Unknown 07/29/2025 12:45 PM EST07/29/2025 12:45 PM EST Narrative Authorizing ProviderResult TypeResult StatusMarc Vernon GRULLON BLOOD ORDERABLES Final ResultPerforming OrganizationAddressCity/State/ZIP CodePhone Number [facility] [address] [place] [address], [place] [phone] * CT cervical spine without contrast (05/25/2025 1:20 AM EDT)Anatomical Region LateralityModalityMSK, Neuro, Spine, C-spine, Spine CoveraN/AComputed TomographySpecimen (Source)Anatomical Location / LateralityCollection Method / VolumeCollection TimeReceived Time05/25/2025 2:12 AM EDT Narrative 05/25/2025 2:[address] CERVICAL SPINE WITHOUT CONTRAST HISTORY: Fall, laceration, pain COMPARISON: 01/15/2015 TECHNIQUE: CT cervical spine was performed utilizing thin section CT imaging without contrast. Coronal and sagittal reformatted images were obtained and reviewed. All CT scans at this facility use dose modulation, iterative reconstruction, and/or weight based dosing when appropriate to reduce radiation dose to as low as reasonably achievable. FINDINGS: There is no fracture or subluxation. ??The vertebral body heights and alignment are normal. ??No prevertebral soft tissue swelling. ??The paravertebral soft tissues are unremarkable. ??The visualizedlungs are unremarkable. IMPRESSION: 1. ??No acute fracture or malalignment in the cervical spine. 2. ??Consider MRI if there is concern for soft tissue or ligamentous injury. Finalized by Dilip Walton MD on 05/25/2025 2:14 AM Procedure Note Dilip Walton MD - 05/25/2025 CT CERVICAL SPINE WITHOUT CONTRAST HISTORY: Fall, laceration, pain COMPARISON: 01/15/2015 TECHNIQUE: CT cervical spine was performed utilizing thin section CTimaging without contrast. Coronal and sagittal reformatted images wereobtained and reviewed. All CT scans at this facility use dose modulation,iterative reconstruction, and/or weight based dosing when appropriate toreduce radiation dose to as low as reasonably achievable. FINDINGS: There is no fracture or subluxation. The vertebral body heights andalignment are normal. No prevertebral soft tissue swelling. Theparavertebral soft tissues are unremarkable. The visualized lungs areunremarkable. IMPRESSION: 1. No acute fracture or malalignment in the cervical spine. 2. Consider MRI if there is concern for soft tissue or ligamentousinjury. Finalized by Dilip Walton MD on 05/25/2025 2:14 AM Authorizing ProviderResult TypeResult StatusDanitommie [facility] ORDERABLESFinal Result * CT brain without contrast (05/25/2025 1:20 AM EDT)Anatomical RegionLaterality ModalityNeuro, Head, Head and Neck, Neuro CoveraN/AComputed TomographySpecimen (Source)Anatomical Location / LateralityCollection Method / VolumeCollection TimeReceived Time05/25/2025 2:11 AM EDT Narrative 05/25/2025 2:[address] HEAD WITHOUT CONTRAST HISTORY: Fall, head laceration COMPARISON: 11/16/2017 TECHNIQUE: Routine noncontrast CT head. ??All CT scans at this facility use dose modulation, iterative reconstruction, and/or weight based dosing when appropriate to reduce radiation dose to as low as reasonably achievable. FINDINGS: There is no acute intracranial hemorrhage, mass, mass-effect, or shift of midline structures. Thereare no abnormal extra-axial fluid collections. Normal eckert matter-white matter differentiation. Thebrain volume and ventricular size are appropriate for the patient's age and there is no evidence of ventricular outflow obstruction. The basal cisterns are patent. No depressed calvarial fractures. The visualized paranasal sinuses and temporal bone structures are clear. Right parietal scalp laceration. IMPRESSION: * ??No acute intracranial abnormality. * ??Right scalp laceration. Finalized by Dilip Walton MD on 05/25/2025 2:12 AM Procedure Note Dilip Walton MD - 05/25/2025 CT HEAD WITHOUT CONTRAST HISTORY: Fall, head laceration COMPARISON: 11/16/2017 TECHNIQUE: Routine noncontrast CT head. All CT scans at this facility usedose modulation, iterative reconstruction, and/or weight based dosing whenappropriate to reduce radiation dose to as low as reasonably achievable. FINDINGS: There is no acute intracranial hemorrhage, mass, mass-effect, or shift ofmidline structures. There are no abnormal extra-axial fluid collections.Normal eckert matter-white matter differentiation. The brain volume andventricular size are appropriate for the patient's age and there is noevidence of ventricular outflow obstruction. The basal cisterns are patent. Nodepressed calvarial fractures. The visualized paranasal sinuses andtemporal bone structures are clear. Right parietal scalp laceration. IMPRESSION: * No acute intracranial abnormality. * Right scalp laceration. Finalized by Dilip Walton MD on 05/25/2025 2:12 AM Authorizing ProviderResult TypeResult StatusDasona Ryder [facility] CT ORDERABLESFinal Result * Laceration Repair (05/25/2025 12:30 AM EDT) Wyatt Patton DO - 05/25/2025 12:30 AM EDT Wyatt Ryder DO 05/25/2025 3:19 AM Laceration Repair Date/Time: 05/25/2025 12:30 AM Performed by: Wyatt Ryder DO Authorized by: Wyatt Ryder DO ?? Consent: ??Consent obtained: ??Verbal ??Consent given by: ??Patient ??Risks, benefits, and alternatives were discussed: yes ?Risks discussed: ??Pain, infection and poor cosmetic result ??Alternatives discussed: ??No treatment [place] protocol: ??Imaging studies available: yes ?Required blood products, implants, devices, and special equipment available: yes ?Site/side marked: yes ?Immediately prior to procedure, a time out was called: yes ?Patient identity confirmed: ??Verbally with patient Anesthesia: ??Anesthesia method: ??Local infiltration ??Local anesthetic: ??Lidocaine 1% WITH epi Laceration details: ??Location: ??Scalp ??Scalp location: ??R parietal ??Length (cm): ??3 ??Depth (mm): ??2 Pre-procedure details: ??Preparation: ??Patient was prepped and draped in usual sterile fashion and imaging obtained to evaluate for foreign bodies Exploration: ??Hemostasis achieved with: ??Epinephrine and direct pressure ??Imaging obtained comment: ??CT ??Imaging outcome: foreign body not noted ?Wound exploration: wound explored through full range of motion and entire depth of wound visualized ?Wound extent: areolar tissue violated ?? Treatment: ??Area cleansed with: ??Soap and water ??Amount of cleaning: ??Standard Skin repair: ??Repair method: ??Erika ??Number of erika: ??8 Approximation: ??Approximation: ??Close Repair type: ??Repair type: ??Simple Post-procedure details: ??Dressing: ??Open (no dressing) ??Procedure completion: ??Tolerated Authorizing ProviderResult TypeResult StatusDanitommie Ryder DO PROCEDURE/MINOR SURGICAL ORDERABLESFinal Result from Last 3 Months Insurance Care Teams Team MemberRelationshipSpecialtyStart DateEnd Date Dannie Junior MD [facility]03/03/17
--- OUTSIDE RECORDS SUMMARY | 2025-08-02 13:07 | XMS_ITS | Clinical Summary ---
Author Organization [facility] Address [address] [place] [address] Care Team Providers Care Needle Control Cheniller Name Role Phone Dannie Junior MD Primary Care Provider [phone] Allergies No known active allergies Medications MedicationSigDispense QuantityRefillsLast FilledStart DateEnd DateStatus OneTouch Ultra test strip 1 each by Other route in the morning.3Active Lancets [facility] Indications:Type 2 diabetes mellitus with hyperglycemia, without long-term current use of insulin (HCC)1 each Daily 50 each 110/4Active gabapentin (Neurontin) 600 MG tablet Indications:Type 2 diabetes mellitus with polyneuropathy (HCC)Take 1 tablet (600 mg) by mouth at bedtime 30 tablet 5035Active furosemide (Lasix) 40 MG tablet Indications:Edema of both lower legsTAKE 1 TABLET(40 MG) BY MOUTH DAILY NEEDED FOR SWELLING 30 tablet 5035Active lisinopril 40 MG tablet Indications:Benign essential hypertensionTAKE 1 TABLET BY MOUTH ONCE DAILY 90 tablet 3045Active carvedilol (Coreg) 25 MG tablet Indications:Benign essential hypertensionTAKE 1 TABLET BY MOUTH IN THE MORNING AND 1 TABLET BEFORE BEDTIME. 30 tablet 605Active celecoxib (CeleBREX) 200 MG capsule Indications:Primary osteoarthritis of right kneeTAKE 1 CAPSULE BY MOUTH TWICE DAILY IF NEEDED 60 capsule 505145Active Trulicity 3 MG/0.5ML solution auto-injector Indications:Type 2 diabetes mellitus with hyperglycemia, without long-term current use of insulin (HCC),Primary osteoarthritis of right kneeADMINISTER 3 MG UNDER THE SKIN 1 TIME EVERY WEEK 2 mL 5Active metFORMIN XR (Glucophage-XR) 500 MG 24 hr tablet Indications:Type 2 diabetes mellitus with hyperglycemia, without long-term current use of insulin (HCC)TAKE 1 TABLET(500 MG) BY MOUTH DAILY 30 tablet 505Active simvastatin (Zocor) 20 MG tablet Indications:DyslipidemiaTAKE 1 TABLET(20 MG) BY MOUTH AT BEDTIME 30 tablet 5Active cholecalciferol (Vitamin D-3) 50 MCG (1999 UT) tablet Indications:Vitamin D deficiencyTAKE 1 TABLET BY MOUTH DAILY. 90 tablet 5Active pantoprazole (ProtoNix) 40 MG EC tablet Indications:Chronic superficial gastritis without bleedingTAKE 1 TABLET BY MOUTH IN THE MORNING AND 1 TABLET BEFORE BEDTIME 60 tablet 5Active traZODone (Desyrel) 50 MG tablet Indications:Primary insomniaTAKE 1 TABLET(50 MG) BY MOUTH AT BEDTIME 30 tablet 5Active Active Problems ProblemNoted DateDiagnosed DateChronic bilateral low back pain with bilateral yqqhjlal04/19/2025 Assessment & Plan (02/24/2025 1:59 PM EDT): Numbness in legs likely related to degenerative changes in back. Discussed options including imaging, PT and pain management and wants to monitor. Type 2 diabetes mellitus with kzawfahywpsyya95/12/2024 Assessment & Plan (02/24/2025 1:59 PM EDT): Symptoms stable and continue neurontin. Assessment & Plan (11/17/2024 1:44 PM EDT): Neuropathy unchanged and increase neurontin. Assessment & Plan (08/19/2024 2:59 PM EST): Developed neuropathy and start neurontin. Screening PSA (prostate specific antigen)06/07/2024Encounter for long-term current use of itygkmbvin04/30/2024Primary piwsvkxu81/30/2024 Assessment & Plan (02/24/2025 1:59 PM EDT): Sleeping well with trazodone and continue. Assessment & Plan (11/17/2024 1:43 PM EDT): Sleeping well with trazodone and continue. Assessment & Plan (08/19/2024 2:58 PM EST): Sleeping well with trazodone and continue. Assessment & Plan (06/07/2024 3:19 PM EDT): Not sleeping well and start trazodone. Benign essential nuipybdilriy99/17/2024 Assessment & Plan (02/24/2025 1:58 PM EDT): [...] and monitor PRN. Chronic superficial gastritis without xnfxaesr07/17/2024 Assessment & Plan (02/24/2025 1:59 PM EDT): Symptoms controlled with protonix and continue. Assessment & Plan (11/17/2024 1:43 PM EDT): Symptoms controlled with protonix and continue. Assessment & Plan (06/07/2024 3:18 PM EDT): Symptoms controlled with protonix and continue. Assessment & Plan (10/06/2023 3:21 PM EST): Symptoms controlled with protonix and continue. Ghlwopzdhswe66/17/2024Edema of both lower legs09/24/2023 Assessment & Plan (02/24/2025 1:59 PM EDT): [...] PRN. Elevate legs PRN. [place] (generalized anxiety disorder)09/24/2023 Assessment & Plan (10/06/2023 3:22 PM EST): Symptoms stable without medication and monitor. Adult khudgsevcifnzz46/17/2024Class 3 severe obesity due to excess calories with serious comorbidity and body mass index (BMI) of50.0 to 59.9 in adult09/24/2023 Assessment & Plan (11/17/2024 1:43 PM EDT): [...] minutes at a time. SMITA (obstructive sleep apnea)09/24/2023rimary osteoarthritis of right knee 09/24/2023 Assessment & [...] OARRS reviewed. Seasonal allergic rhinitis due to ybbmpk9809/24/2023 Assessment & Plan (10/06/2023 3:22 PM EST): Symptoms controlled with medication and continue. Vitamin D ildylfrrgb81/17/2024Type 2 diabetes mellitus with hyperglycemia 09/15/2023 Assessment & Plan (02/24/2025 1:59 PM EDT): [...] to ADA diet and limit carbs. Encounters DateTypeDepartmentCare IbbwMdgwlqkznme47/02/2025Refill [facility] [address] [place] [address] Dannie Junior MD Primary osteoarthritis of right knee05/03/2025Refill [facility] [address] [place] [address] Dannie Junior MD Primary insomniafrom Last 3 Months Social History Tobacco UseTypesPacks/DayYears UsedDateSmoking Tobacco: NeverSmokeless Tobacco: Never Tobacco Cessation:Counseling Given: Not Answered Social Connection and Isolation PanelAnswerDate RecordedIn a typical week, how many times do you talk on the phone with family, friends, or neighbors?More than three times a week06/02/2024How often do you get together with friends or relatives?More than three times a week06/02/2024How often do you attend episcopal or protestant services?1 to 4 times per year4Do you belong to any clubs or organizations such as episcopal groups, unions, fraternal or athletic groups, or school groups?No06/02/2024How often do you attend meetings of the clubs or organizations you belong to?More than 4 times per year4Are you , , , , never , or living with a partner?Never cmeucmr7506/02/2024UDIT-CAnswerDate RecordedQ1: How often do you have a drink containing alcohol?4 or more times a week06/02/2024Q2: How many drinks containing alcohol do you have on a typical day when you are drinking?5 or 6 06/02/2024Frequency of Binge DrinkingNot on file06/02/2024Overall Financial Resource Strain (CARDIA)AnswerDate RecordedHow hard is it for you to pay for the very basics like food, housing, medical care, and heating?Not hard at all 06/02/2024[facility] - Occupational Stress QuestionnaireAnswerDate RecordedDo you feel stress - tense, restless, nervous, or anxious, or unable to sleep at night because yourmind is troubled all the time - these days?To some qnfykw3506/02/2024Exercise Vital SignAnswerDate Recorded On average, how many days per week do you engage in moderate to strenuous exercise (like a brisk walk)?1 day06/02/2024On average, how many minutes do you engage in exercise at this level?10 min06/02/2024Hunger Vital SignAnswerDate RecordedWithin the past 12 months, you worried that your food would run out before you got the money to buymore.Never true06/02/2024Within the past 12 months, the food you bought just didn't last and you didn't have money to get more.Never true06/02/2024RAPARE - TransportationAnswerDate RecordedIn the past 12 months, has lack of transportation kept you from medical appointments or from getting medications?No06/02/2024In the past 12 months, has lack of transportation kept you from meetings, work, or from getting things needed for daily living?No06/02/2024Housing Stability Vital SignAnswerDate RecordedIn the last 12 months, was there a time when you were not able to pay the mortgage or rent on time?No06/02/2024Number of Times Moved in the Last YearNot on file 06/02/2024t any time in the past 12 months, were you homeless or living in a correction (including now)?No06/02/2024Sex and Gender InformationValueDate Recorded Sex Assigned at RrkdbWyls18/25/2024 9:13 AM EDTLegal BtuHrqa0311/20/2022 7:14 PM EDTGender ArkxmlmoWanu67/25/2024 9:13 AM EDTSexual OrientationNot on file Last Filed Vital Signs Vital SignReadingTime TakenCommentsBlood Yebfndzu012/78002/24/2025 1:40 PM EDT Frtre859302/24/2025 1:40 PM HHWImokdowolkb80.6 ??C (97.8 ??F)02/24/2025 1:40 PM EDTRespiratory Gvom549102/24/2025 1:40 PM EDTOxygen Fvwznoaksh41%02/24/2025 1:40 PM EDTInhaled Oxygen Concentration--Yjujaf724 kg (358 lb)02/24/2025 1:40 PM EDT Xcfweg316.8 cm (5' 10 )02/24/2025 1:40 PM EDTBody Mass Index51.37002/24/2025 1:40 PM EDT Plan of Treatment Not on file Insurance * Guarantor: Terry García TypeRelation to PatientDate of BirthPhone Billing AddressPersonal/Rdqv[address] [place] [address] Care Teams Team MemberRelationshipSpecialtyStart DateEnd Date Dannie Junior MD PCP - GeneralFamily Bllytapr68/12/24
--- NOTE | 2025-08-02 13:45 | XR_ITS ---
[place] [id number] Patient Name: KAILEE LOVE MRN: [id number] date: 1970 Sex: M Assigned Patient Location: [facility] Current Patient Location: [facility] Accession/Order Number: [id number] Exam Date: 08/02/2025 13:35 Report Date: 08/02/2025 20:22 At the request of: NELSON GIBSON DO Procedure: XR knee RT 3V 4 views right knee INDICATION: Right knee degenerative arthritis COMPARISON: None FINDINGS: Postsurgical changes status post total knee arthroplasty and patellar resurfacing. No fractures age identified. Alignment anatomic. Soft tissues unremarkable. XR/XR knee RT 3V IMPRESSION: Postsurgical changes status post arthroplasty with well aligned osseous components. No periprosthetic lucency or fracture identified. Impression dictated by: Rahul Rodriguez M.D. 08/02/2025 8:22 PM Dictation Location: [place] [address] Electronically authenticated by: [id number] Y Date: 08/02/2025 20:22
== END 2025-08-02 13:01 | disposition home or self-care (01) ==
LOC: RAD 13:04
PROVIDERS: PCP Family Medicine
DX: M17.11 Unilateral primary osteoarthritis, right knee (principal); Z96.651 Presence of right artificial knee joint
CPT/HCPCS: 73562